=== PATIENT | female | born 1995 | race Caucasian/White ===

== ENCOUNTER 2018-02-10 08:27 | Emergency (ER) | payer OTHER ==
[~2018-02-10 08:27] MED LIST: EST5I IM ONLY
[2018-02-10] MEDS ORDERED: SULF-198 PO (08:38)
--- NOTE | 2018-02-10 08:42 | ER Report ---
History and Physical Time Seen By MD: 08:41 Hx. of Stated Complaint: PT REPORTS SHE WAS DIAGNOSED WITH A UTI AT URGENT CARE TUESDAY. REPORTS SHE IS TAKING HER ABX BUT STARTED HAVING BACK PAIN AND VOMITING THIS MORNING HPI/ROS CHIEF COMPLAINT: diagnosed with UTI, having back and abdominal pain and nausea/ vomiting. HISTORY OF PRESENT ILLNESS: This is a 22 year old female. She came to the ER this morning because of ongoing symptoms of possible urinary tract infection. She was seen 3 days ago at urgent care. Had dark urine and left flank pain at that time. Having urgency, but no dysuria. Has some lower left abdominal pain. Nausea with vomiting today. No diarrhea. Is on Bactrim DS the last 3 days, but symptoms worsening. REVIEW OF SYSTEMS: Constitutional: No fever or chills. Eyes: No vision changes. ENT: No sore throat. No congestion. Cardiovascular: No palpitations. Respiratory: No cough. No shortness of breath. Gastrointestinal: As above. Genitourinary: As above. Musculoskeletal: No extremity pain. Skin: No rashes. Neurological: No weakness. No headache. Allergies: Coded Allergies: oxycodone (Verified Allergy, Mild, 02/10/18) Home Meds Active Scripts Cefdinir 300 Mg Cap (OMNICEF 300 MG CAP (OR EQUIV)) 300 Mg Cap, 300 MG PO BID, # 14 CAP 0 Refills Prov:AUGUSTINE VILLANUEVA MD 02/10/18 Reported Medications Sulfamethoxazole/Trimet 800-160 Mg Tab (BACTRIM DS TABLET) 1 Each Tablet, 1 TAB PO Q12H Y for 3DAYS, TAB 02/10/18 Estradiol Cypionate (DEPO-ESTRADIOL) 5 Mg/Ml Soln, 5 MG IM ONLY 08/30/16 Reviewed Nurses Notes: Yes Constitutional Vital Sign - Last 24 Hours 02/10/18 02/10/18 02/10/18 02/10/18 08:32 08:36 08:42 08:57 Temp 98.8 Pulse 100 109 Resp 16 B/P (MAP) 129/85 129/85 (100) Pulse Ox 96 95 97 O2 Delivery Room Air 02/10/18 02/10/18 02/10/18 02/10/18 09:00 09:27 09:30 10:00 Pulse 99 B/P (MAP) 113/79 (90) 117/75 (89) 114/70 (85) Pulse Ox 97 02/10/18 02/10/18 02/10/18 02/10/18 10:06 10:11 10:11 10:21 Pulse 99 91 91 99 Pulse Ox 97 97 96 02/10/18 02/10/18 02/10/18 02/10/18 10:21 10:26 10:30 10:30 Pulse 99 92 B/P (MAP) 110/75 (87) 110/75 (87) Pulse Ox 96 96 02/10/18 02/10/18 02/10/18 02/10/18 10:31 10:31 10:36 10:41 Pulse 98 98 97 103 Pulse Ox 96 96 97 97 02/10/18 02/10/18 02/10/18 02/10/18 10:41 10:46 10:51 10:56 Pulse 103 95 100 104 Pulse Ox 97 95 94 94 02/10/18 02/10/18 02/10/18 02/10/18 11:00 11:01 11:06 11:11 Pulse 104 97 96 B/P (MAP) 113/75 (88) Pulse Ox 95 95 02/10/18 02/10/18 02/10/18 02/10/18 11:16 11:26 11:30 11:36 Pulse 93 98 103 B/P (MAP) 108/69 (82) Pulse Ox 94 94 Intake and Output 02/10/18 02/10/18 02/11/18 15:00 23:00 07:00 Intake Total 1000 ml Balance 1000 ml Physical Exam General Appearance: The patient is alert. No acute distress. Eyes: Pupils are equal, round. No pallor, injection or icterus. ENT: Mucous membranes are moist. Respiratory: Lungs are clear to auscultation. Cardiovascular: Regular rate and rhythm. No murmurs, gallops or rubs. Normal capillary refill. Gastrointestinal: Abdomen is soft, some guarding and tenderness left abdomen. Right CVA tenderness. Nondistended. Normal active bowel sounds. Neurological: Alert and oriented x3. No focal neurologic deficits Skin: Warm and dry. Musculoskeletal: Full range of motion. No tenderness in palpation of the cervical, thoracic and lumbar spine. DIFFERENTIAL DIAGNOSIS: After history and physical exam, differential diagnosis was considered for flank pain including but not limited to musculoskeletal causes, kidney stone, pyelonephritis, shingles, and intra-abdominal causes such as diverticulitis and appendicitis. Medical Decision Making Data Points Result Diagram: 02/10/18 0841 02/10/18 0841 Laboratory Hematology Test 02/10/18 08:32 02/10/18 08:41 Urine Color Laisha Urine Clarity Cloudy Urine pH 6.0 pH (4.8-9.5) Urine Specific [place] 1.024 Urine Protein 100 mg/dL (NEGATIVE) Urine Glucose (UA) Negative mg/dL (NEGATIVE) Urine Ketones Negative mg/dL (NEGATIVE) Urine Blood Negative (NEGATIVE) Urine Nitrite Negative (NEGATIVE) Urine Bilirubin Negative (NEGATIVE) Urine Urobilinogen 4.0 mg/dL (0.2-1.9) Urine Leukocyte Esterase Small (NEGATIVE) Urine RBC 3 /HPF (0-2/HPF) Urine WBC 19 /HPF (0-5/HPF) Urine Squamous Epithelial Cells Many /LPF (</=FEW) Urine Bacteria Moderate /HPF (NONE-FEW) Urine Mucus Few /HPF (NONE-FEW) Red Blood Count 4.85 M/uL (4.17-5.56) Mean Corpuscular Volume 89.3 fL (80.0-96.0) Mean Corpuscular Hemoglobin 31.6 pg (26.0-33.0) Mean Corpuscular Hemoglobin Concent 35.3 g/dL (32.0-36.0) Red Cell Distribution Width 13.5 % (11.5-14.5) Mean Platelet Volume 8.5 fL (7.2-11.1) Neutrophils (%) (Auto) % (39.4-72.5) Lymphocytes (%) (Auto) % (17.6-49.6) Monocytes (%) (Auto) % (4.1-12.4) Eosinophils (%) (Auto) % (0.4-6.7) Basophils (%) (Auto) % (0.3-1.4) Nucleated RBC Relative Count (auto) /100WBC Neutrophils # (Auto) K/uL (2.0-7.4) Lymphocytes # (Auto) K/uL (1.3-3.6) Monocytes # (Auto) K/uL (0.3-1.0) Eosinophils # (Auto) K/uL (0.0-0.5) Basophils # (Auto) K/uL (0.0-0.1) Nucleated RBC Absolute Count (auto) K/uL Neutrophils % (Manual) 19 % (39.4-72.5) Band Neutrophils % 2 % Lymphocytes % (Manual) 12 % (17.6-49.6) Atypical Lymphocytes % 66 % Monocytes % (Manual) 1 % (4.1-12.4) Eosinophils % (Manual) 0 % (0.4-6.7) Basophils % (Manual) 0 % (0.3-1.4) Peripheral Blood Smear Yes Y/N Sodium Level 136 mmol/L (137-145) Potassium Level 3.8 mmol/L (3.5-5.0) Chloride Level 102 mmol/L (98-107) Carbon Dioxide Level 21 mmol/L (22-31) Blood Urea Nitrogen 9 mg/dl (7-18) Creatinine 0.90 mg/dl (0.52-1.04) Glomerular Filtration Rate Calc > 60.0 Random Glucose 113 mg/dl (75-110) Calcium Level 8.5 mg/dl (8.4-10.2) Total Bilirubin 1.2 mg/dl (0.2-1.3) Aspartate Amino Transf (AST/SGOT) 385 U/L (0-35) Alanine Aminotransferase (ALT/SGPT) 537 U/L (0-56) Alkaline Phosphatase 224 U/L (0-126) Total Protein 7.2 gm/dl (6.3-8.2) Albumin 3.8 g/dl (3.5-5.0) Human Chorionic Gonadotropin, Qual Negative (NEGATIVE) Hepatitis B Surface Antigen Negative (NEGATIVE) Hepatitis C Antibody Negative (NEGATIVE) Monoscreen Positive (NEGATIVE) Chemistry Test 02/10/18 08:32 02/10/18 08:41 Urine Color Laisha Urine Clarity Cloudy Urine pH 6.0 pH (4.8-9.5) Urine Specific [place] 1.024 Urine Protein 100 mg/dL (NEGATIVE) Urine Glucose (UA) Negative mg/dL (NEGATIVE) Urine Ketones Negative mg/dL (NEGATIVE) Urine Blood Negative (NEGATIVE) Urine Nitrite Negative (NEGATIVE) Urine Bilirubin Negative (NEGATIVE) Urine Urobilinogen 4.0 mg/dL (0.2-1.9) Urine Leukocyte Esterase Small (NEGATIVE) Urine RBC 3 /HPF (0-2/HPF) Urine WBC 19 /HPF (0-5/HPF) Urine Squamous Epithelial Cells Many /LPF (</=FEW) Urine Bacteria Moderate /HPF (NONE-FEW) Urine Mucus Few /HPF (NONE-FEW) White Blood Count 11.7 k/uL (4.5-11.0) Red Blood Count 4.85 M/uL (4.17-5.56) Hemoglobin 15.3 g/dL (12.0-16.0) Hematocrit 43.4 % (34.0-47.0) Mean Corpuscular Volume 89.3 fL (80.0-96.0) Mean Corpuscular Hemoglobin 31.6 pg (26.0-33.0) Mean Corpuscular Hemoglobin Concent 35.3 g/dL (32.0-36.0) Red Cell Distribution Width 13.5 % (11.5-14.5) Platelet Count 152 K/uL (150-450) Mean Platelet Volume 8.5 fL (7.2-11.1) Neutrophils (%) (Auto) % (39.4-72.5) Lymphocytes (%) (Auto) % (17.6-49.6) Monocytes (%) (Auto) % (4.1-12.4) Eosinophils (%) (Auto) % (0.4-6.7) Basophils (%) (Auto) % (0.3-1.4) Nucleated RBC Relative Count (auto) /100WBC Neutrophils # (Auto) K/uL (2.0-7.4) Lymphocytes # (Auto) K/uL (1.3-3.6) Monocytes # (Auto) K/uL (0.3-1.0) Eosinophils # (Auto) K/uL (0.0-0.5) Basophils # (Auto) K/uL (0.0-0.1) Nucleated RBC Absolute Count (auto) K/uL Neutrophils % (Manual) 19 % (39.4-72.5) Band Neutrophils % 2 % Lymphocytes % (Manual) 12 % (17.6-49.6) Atypical Lymphocytes % 66 % Monocytes % (Manual) 1 % (4.1-12.4) Eosinophils % (Manual) 0 % (0.4-6.7) Basophils % (Manual) 0 % (0.3-1.4) Peripheral Blood Smear Yes Y/N Glomerular Filtration Rate Calc > 60.0 Calcium Level 8.5 mg/dl (8.4-10.2) Total Bilirubin 1.2 mg/dl (0.2-1.3) Aspartate Amino Transf (AST/SGOT) 385 U/L (0-35) Alanine Aminotransferase (ALT/SGPT) 537 U/L (0-56) Alkaline Phosphatase 224 U/L (0-126) Total Protein 7.2 gm/dl (6.3-8.2) Albumin 3.8 g/dl (3.5-5.0) Human Chorionic Gonadotropin, Qual Negative (NEGATIVE) Hepatitis B Surface Antigen Negative (NEGATIVE) Hepatitis C Antibody Negative (NEGATIVE) Monoscreen Positive (NEGATIVE) Urinalysis Test 02/10/18 08:32 Urine Color Laisha Urine Clarity Cloudy Urine pH 6.0 pH (4.8-9.5) Urine Specific [place] 1.024 Urine Protein 100 mg/dL (NEGATIVE) Urine Glucose (UA) Negative mg/dL (NEGATIVE) Urine Ketones Negative mg/dL (NEGATIVE) Urine Blood Negative (NEGATIVE) Urine Nitrite Negative (NEGATIVE) Urine Bilirubin Negative (NEGATIVE) Urine Urobilinogen 4.0 mg/dL (0.2-1.9) Urine Leukocyte Esterase Small (NEGATIVE) Urine RBC 3 /HPF (0-2/HPF) Urine WBC 19 /HPF (0-5/HPF) Urine Squamous Epithelial Cells Many /LPF (</=FEW) Urine Bacteria Moderate /HPF (NONE-FEW) Urine Mucus Few /HPF (NONE-FEW) EKG/Imaging Imaging EXAMINATION: CT abdomen with IV contrast CT pelvis with IV contrast HISTORY: Flank pain and vomiting. TECHNIQUE: Spiral scan was through the abdomen and pelvis during injection of nonionic iodinated intravenous contrast. Sagittal and coronal reformatted images are also submitted. One of the following dose optimization techniques was utilized in the performance of this exam: Automated exposure control; adjustment of the mA and/ or kV according to the patient's size; or use of an iterative reconstruction technique. Specific details can be referenced in the facility's radiology CT exam operational policy. CONTRAST: 75 mL of IV Isovue-370 COMPARISON: 08/30/2016. FINDINGS: Lower chest: Trace bilateral pleural effusions. Otherwise negative. Liver / biliary: Negative. Pancreas: Negative. Spleen: Splenomegaly measuring up to 16.6 cm. No focal mass. Adrenal glands: Negative. Kidneys: Multiple bilateral renal cysts measuring up to 2.3 x 1.9 cm on the left and 1.4 x 1.5 cm on the right. Normal symmetric renal enhancement. No surrounding inflammatory changes. No hydronephrosis. Mild scarring in the inferior anterior left kidney. Pelvic structures: Negative. Bowel: Normal appendix. No bowel obstruction or bowel wall thickening. Peritoneum / retroperitoneum / mesenteries: Mild free fluid in the pelvis. No free air. Vessels: Portal, splenic, and mesenteric veins are patent. Otherwise negative. Musculoskeletal / Body wall: Negative. Lymph node assessment: Mildly enlarged lymph nodes in the upper retroperitoneum and periportal region measuring up to 2.0 cm adjacent to the main portal vein ( series 2, image 41) and 1.9 x 1.4 cm just below the left renal vein (series 2, image 55). IMPRESSION: 1. Splenomegaly measuring up to 16.6 cm. 2. Mildly enlarged lymph nodes in the upper retroperitoneum and periportal region measuring up to 2.0 cm adjacent to the main portal vein (series 2, image 41) and 1.9 x 1.4 cm just below the left renal vein (series 2, image 55). 3. Mild free fluid in the pelvis. No free air. 4. Trace bilateral pleural effusions. 5. Multiple bilateral renal cysts. No abnormal renal enhancement to suggest pyelonephritis. Report Dictated By: Joseph Sepulveda MD at 02/10/2018 9:56 AM ED Course/Re-evaluation Clinical Indication for ER IV: Hydration, IV Access ED Course Labs returned and show elevated AST, ALT and alkaline phosphatase. Mild changes of sodium and bicarb, but kidney function looks good. Urinalysis shows changes that look like possible infection versus contamination. CT scan with splenomegaly, but no other major problems. I discussed these findings with the patient. [place] and hepatitis testing ordered. She will follow-up with [facility]. We will switch her to Omnicef as the Bactrim may be the cause of elevated liver function, or at least affecting this as well. Urine culture obtained. Decision to Disposition Date: Feb 10, 2018 Decision to Disposition Time: 11:19 Depart Departure Latest Vital Signs Vital Signs Date Time Temp Pulse Resp B/P (MAP) Pulse Ox O2 Delivery O2 Flow Rate FiO2 02/10/18 11:36 103 02/10/18 11:30 108/69 (82) 02/10/18 11:26 94 02/10/18 08:32 98.8 16 Room Air Impression: Primary Impression: Urinary tract infection Additional Impressions: Mononucleosis syndrome Splenomegaly Elevated liver function tests Condition: Improved Disposition: HOME OR SELF-CARE New Scripts Cefdinir 300 Mg Cap (OMNICEF 300 MG CAP (OR EQUIV)) 300 Mg Cap 300 MG PO BID, #14 CAP 0 Refills Prov: AUGUSTINE VILLANUEVA MD 02/10/18 Patient Instructions: Mononucleosis (ED), Urinary Tract Infection in Women (ED) Additional Instructions: Your liver function tests were elevated and you spleen is enlarged. This is usually caused by a viral process. We think that this is caused by one of the viruses that cause mono. Please rest and increase fluid intake over the weekend. No heavy physical activity. Follow-up with the doctors at [facility] on Tuesday for re- evaluation. The Bactrim DS you have been on can be hard on the liver. We are switching to Omnicef 300mg twice a day for 7 days. Return to the ER for worsening pain in the abdomen. Problem Qualifiers Primary Impression: Urinary tract infection Urinary tract infection type: acute cystitis Hematuria presence: without hematuria Qualified Codes: N30.00 - Acute cystitis without hematuria AUGUSTINE VILLANUEVA MD Feb 10, 2018 08:42
[2018-02-10] MEDS ORDERED: NS(*) 0.9% 1000 ML BAG 1,000 ML IV ONE (08:45)
[2018-02-10] MEDS ORDERED: ONDANSETRON 4 MG/2 ML VIAL IVP ONE (08:45)
[2018-02-10 08:54] LABS: PLATELET COUNT, AUTOMATED 152 K/uL (150-450)
[2018-02-10] MEDS ORDERED: IOPAMIDOL 76% 75 ML INFUS BTL 75 ML ONE (09:25)
[2018-02-10] MEDS ORDERED: NS 0.9% 150 ML BAG 150 ML ONE (09:25)
--- NOTE | 2018-02-10 10:12 | RADIOLOGY IMAGING REPORT ---
FACILITY: [facility] [place] PATIENT NAME: Jenni Bull : 1995 MR: [id number] V: [id number] EXAM DATE: ORDERING PHYSICIAN: AUGUSTINE VILLANUEVA TECHNOLOGIST: Location: [facility] Patient: Jenni Bull : 1995 Visit/Account:[id number] Date of Sevice: 02/10/2018 EXAMINATION: CT abdomen with IV contrast CT pelvis with IV contrast HISTORY: Flank pain and vomiting. TECHNIQUE: Spiral scan was through the abdomen and pelvis during injection of nonionic iodinated in travenous contrast. Sagittal and coronal reformatted images are also submitted. One of the following dose optimization techniques was utilized in the performance of this exam: Autom ated exposure control; adjustment of the mA and/or kV according to the patient's size; or use of an i terative reconstruction technique. Specific details can be referenced in the facility's radiology C T exam operational policy. CONTRAST: 75 mL of IV Isovue-370 COMPARISON: 08/30/2016. FINDINGS: Lower chest: Trace bilateral pleural effusions. Otherwise negative. Liver / biliary: Negative. Pancreas: Negative. Spleen: Splenomegaly measuring up to 16.6 cm. No focal mass. Adrenal glands: Negative. Kidneys: Multiple bilateral renal cysts measuring up to 2.3 x 1.9 cm on the left and 1.4 x 1.5 cm on the right. Normal symmetric renal enhancement. No surrounding inflammatory changes. No hydronephro sis. Mild scarring in the inferior anterior left kidney. Pelvic structures: Negative. Bowel: Normal appendix. No bowel obstruction or bowel wall thickening. Peritoneum / retroperitoneum / mesenteries: Mild free fluid in the pelvis. No free air. Vessels: Portal, splenic, and mesenteric veins are patent. Otherwise negative. Musculoskeletal / Body wall: Negative. Lymph node assessment: Mildly enlarged lymph nodes in the upper retroperitoneum and periportal region measuring up to 2.0 cm adjacent to the main portal vein (series 2, image 41) and 1.9 x 1.4 cm just b elow the left renal vein (series 2, image 55). IMPRESSION: 1. Splenomegaly measuring up to 16.6 cm. 2. Mildly enlarged lymph nodes in the upper retroperitoneum and periportal region measuring up to 2. 0 cm adjacent to the main portal vein (series 2, image 41) and 1.9 x 1.4 cm just below the left renal vein (series 2, image 55). 3. Mild free fluid in the pelvis. No free air. 4. Trace bilateral pleural effusions. 5. Multiple bilateral renal cysts. No abnormal renal enhancement to suggest pyelonephritis. Report Dictated By: Jospeh Sepulveda MD at 02/10/2018 9:56 AM Report E-Signed By: Joseph Sepulveda MD at 02/10/2018 10:09 AM WSN:[id number]
[2018-02-10] MEDS ORDERED: cefTRIAXone 1 GM VIAL IM ONE (10:25)
[2018-02-10] MEDS ORDERED: LIDOCAINE 1% MDV 200 MG/20 ML INJ ONE (10:25)
[2018-02-10] MEDS ORDERED: cefTRIAXone 1 GM VIAL IVP ONE (10:50)
[2018-02-10 11:30] VITALS: BP 108/69
[2018-02-10] MEDS ORDERED: CEF300 PO (11:37)
== END 2018-02-10 11:42 | disposition home or self-care (01) ==
LOC: ER 08:30
DX: N30.00 Acute cystitis without hematuria (principal); B27.90 Infectious mononucleosis, unspecified without complication; R16.1 Splenomegaly, not elsewhere classified; R79.89 Other specified abnormal findings of blood chemistry
CPT/HCPCS: 74177; 81001; 84703; 85025; 86308; 86704; 86708; 86803; 87088; 87340; 96361; 96374; 96375; 99284; J0696; J2405; J7030; Q9967; 82040; 82247; 82310; 82374; 82435; 82565; 82947; 84075; 84132; 84155; 84295; 84450; 84460; 84520

== ENCOUNTER → 2018-07-25 | Outpatient (CLI) | payer OTHER ==
[~2018-07-25] MED LIST changes: +CEF300 PO; +SINCALIDE 5 MCG VIAL INJ ONE; +SULF-198 PO; +WATER FOR INJ,STERILE 20 ML 20 ML ONE
--- NOTE | 2018-07-25 15:44 | RADIOLOGY IMAGING REPORT ---
FACILITY: [facility] PATIENT NAME: Jenni Bull : 1995 MR: [id number] V: [id number] EXAM DATE: ORDERING PHYSICIAN: [facility] TECHNOLOGIST: Location: [facility] [place] Patient: Jenni Bull : 1995 Visit/Account:[id number] Date of Sevice: 07/25/2018 HIDA W/CCK HISTORY: Right upper quadrant pain TECHNIQUE: 6.0 mCi Tc99m Hepatolite was injected intravenously. Multiple sequential gamma camera sofiya ges of the abdomen were obtained for 21 minutes. At that time, Kinevac was injected intravenously and an additional 30 minutes of gamma camera imaging data was acquired. A computer-generated region of i nterest was placed around the gallbladder and time-activity curve for the gallbladder was derived. Th e gallbladder ejection fraction was calculated. COMPARISON: CT abdomen pelvis February 10, 2018 FINDINGS: Liver uptake and excretion: Unremarkable. Time to appearance: Bile ducts: 5 minutes. Gallbladder: 10 minutes. Duodenum: 16 minutes. Duodenal-gastric reflux / extravasation: None. Post IV Kinevac: Normal and prompt contraction of the gallbladder. Patient symptoms: Patient complained of stomach pain following CCK injection Ejection fraction = 97% (normal range >35%). IMPRESSION: Gallbladder ejection fraction 97% Report Dictated By: Emma Hoffman MD at 07/25/2018 3:18 PM Report E-Signed By: Emma Hoffman MD at 07/25/2018 3:40 PM WSN:[email or web address]
== END ==
LOC: NUC 01:23
PROVIDERS: ATTEND Family Medicine
DX: R10.11 Right upper quadrant pain (principal); R10.33 Periumbilical pain; R19.7 Diarrhea, unspecified
CPT/HCPCS: 78226; A9537; J2805

== ENCOUNTER → 2018-09-12 | Outpatient (CLI) | payer OTHER ==
[~2018-09-12] MED LIST changes: +BARIUM SULFATE 600 ML SUSP ONE; +BIOT1CAP PO; +LOPE2CAP15 PO; +MELO-205 PO; -SINCALIDE 5 MCG VIAL INJ ONE; -WATER FOR INJ,STERILE 20 ML 20 ML ONE; +[UNRECOGNIZED DRUG - OTHER] PO
--- NOTE | 2018-09-12 11:56 | RADIOLOGY IMAGING REPORT ---
FACILITY: [facility] PATIENT NAME: Jenni Bull : 1995 MR: [id number] V: [id number] EXAM DATE: ORDERING PHYSICIAN: DANIKA MARY TECHNOLOGIST: Location: [facility] [place] Patient: Jenni Bull : 1995 Visit/Account:[id number] Date of Sevice: 09/12/2018 SMALL BOWEL SERIES COMPARISON: None. HISTORY: Months of nausea and vomiting. TECHNIQUE: A scouts radiograph of the abdomen was obtained. Subsequently or contrast was given for s tandard small bowel series. Immediate and 20 minute postdrinking films were obtained. Subsequently fluoroscopy was performed with palpation. FINDINGS: BRIDGE GAME DIRECTOR: Normal. SMALL BOWEL: Duodenum appears to be normally rotated. The small bowel fold pattern is within normal limits. No appreciable wall thickening or significant small bowel displacement. No fixed filling d efects, abnormal dilatation or stricture. Terminal ileum could not be isolated because of significan t overlap of small bowel and colon in this thin patient. No displaced loops in the right lower quadr ant to suggest inflammatory change. No ileal abnormalities are seen. No localized tenderness/pain, either with or without palpation. TRANSIT TIME: Within 20 minutes. Transit time is rapid however upon real-time fluoroscopy peristals is appeared to be normal. OTHER: Negative. FLUOROSCOPY TIME: 2.6 minutes DOSE: DAP was 680.14 microGy*m2. IMPRESSION: Rapid transit time to the cecum otherwise normal small bowel series Report Dictated By: Rohit Turk at 09/12/2018 11:49 AM Report E-Signed By: Rohit Turk at 09/12/2018 11:53 AM WSN:[email or web address]
== END ==
LOC: RAD 01:41
PROVIDERS: ATTEND Surgery
DX: R10.9 Unspecified abdominal pain (principal); R14.0 Abdominal distension (gaseous); K52.9 Noninfective gastroenteritis and colitis, unspecified; Z87.11 Personal history of peptic ulcer disease
CPT/HCPCS: 74250

== ENCOUNTER → 2019-01-08 | Outpatient (CLI) | payer OTHER ==
[~2019-01-08] MED LIST changes: -BARIUM SULFATE 600 ML SUSP ONE
== END ==
LOC: LAB 14:33
PROVIDERS: ATTEND Surgery
DX: C44.719 Basal cell carcinoma of skin of left lower limb, including hip (principal)
CPT/HCPCS: 88305